=== PATIENT | male | born 1995 | race Hispanic/Latino ===

== ENCOUNTER 2016-12-20 12:47 | Emergency (ER) | payer OTHER ==
[2016-12-20 12:52] VITALS: BP 137/80; PULSE 118; RESP 20; TEMP 100; O2SAT 99
[2016-12-20] MEDS ORDERED: Lidocaine 1% w Epi 1:100,000 Inj ONE (13:02)
--- NOTE | 2016-12-20 13:19 | ED PDOC ---
HPI: Head Injury Time Seen by Provider: 12/20/16 12:50 Chief Complaint (Nursing): Abnormal Skin Integrity Chief Complaint (Provider): Head and right hand injury History Per: Patient History/Exam Limitations: no limitations Injury Occurred (Timing): Just Before Arrival (Prior to arrival) Onset/Duration Of Symptoms: Mins Patient States: Struck With Object Loss Of Consciousness: No Additional Complaint(s): Aurelio Martinez is a 21 year old male, with a past medical history of seizures, who presents to the emergency department via EMS due to a head injury associated with a superficial abrasion to the right hand onset prior to arrival. EMS applied dressing and pressure to the wounds prior to arriving to the ER. Patient reports he was sawing wood incorrectly when it kicked back and hit him in the head. He denies any loss of consciousness, dizziness, nausea, and vomit. He states his T-dip is not up to date. No further medical complaints. PMD: None provided. Past Medical History Reviewed: Historical Data, Nursing Documentation, Vital Signs Vital Signs: Last Vital Signs Temp 100 F H 12/20/16 12:49 Pulse 118 H 12/20/16 12:49 Resp 20 12/20/16 12:49 BP 137/80 12/20/16 12:49 Pulse Ox 99 12/20/16 12:49 - Medical History PMH: Seizures - Family History Family History: States: Unknown Family Hx - Social History Current smoker - smoking cessation education provided: No Alcohol: Social Drugs: Denies - Immunization History Hx Tetanus Toxoid Vaccination: No Hx Influenza Vaccination: No Hx Pneumococcal Vaccination: No - Home Medications Home Medications: Ambulatory Orders Medication Instructions Recorded Ibuprofen [Motrin] 600 mg PO Q6 #20 tab 12/20/16 - Allergies Allergies/Adverse Reactions: Allergies Allergy/AdvReac Type Severity Reaction Status Date / Time No Known Allergies Allergy Verified 12/20/16 12:49 Review of Systems ROS Statement: Except As Marked, All Systems Reviewed And Found Negative Gastrointestinal: Negative for: Nausea, Vomiting Musculoskeletal: Positive for: Arm Pain (right hand abrasion) Skin: Positive for: Other (Right forehead laceration) Neurological: Negative for: Dizziness, Other (loss of consciousness) Physical Exam - Reviewed Nursing Documentation Reviewed: Yes Vital Signs Reviewed: Yes - Physical Exam Appears: Positive for: Well, Non-toxic, No Acute Distress Head Exam: Positive for: NORMAL INSPECTION, NORMOCEPHALIC. Negative for: ATRAUMATIC (4cm vertical laceration deep on right forehead, no active bleeding) Skin: Positive for: Normal Color, Warm, Dry Eye Exam: Positive for: Normal appearance Neck: Positive for: Normal, Painless ROM, Supple Respiratory: Positive for: Normal Breath Sounds. Negative for: Respiratory Distress Extremity: Positive for: Other (Right hand superficial abrasion to right 1st and 2nd digits) Neurologic/Psych: Positive for: Alert, Oriented. Negative for: Motor/Sensory Deficits - ECG O2 Sat by Pulse Oximetry: 99 (RA) Pulse Ox Interpretation: Normal Medical Decision Making Medical Decision Making: Initial Impression: Right forehead vertical laceration, Right hand superficial abrasion Initial Plan: --Adacel 0.5 ml IM --Laceration repaired by BENSON, see procedure note Wound care discussed Scribe Attestation: Documented by Theodore Bolden, acting as a scribe for Yina LINDSEY. Provider Scribe Attestation: All medical record entries made by the Scribe were at my direction and personally dictated by me. I have reviewed the chart and agree that the record accurately reflects my personal performance of the history, physical exam, medical decision making, and the department course for this patient. I have also personally directed, reviewed, and agree with the discharge instructions and disposition. Disposition - Clinical Impression Clinical Impression: Laceration, Head injury - Patient ED Disposition Is Patient to be Admitted: No - Disposition Disposition: Routine/Home Disposition Time: 14:03 Condition: STABLE Prescriptions: Ibuprofen [Motrin] 600 mg PO Q6 #20 tab Instructions: Care For Your Absorbable Stitches (ED), Head Injury (ED) Forms: [employer] (Upper Sorbian) - POA Present On Arrival: Falls Or Trauma Laceration - Laceration Repair laceration Wound Length (In cm): 4 Description Of Wound: Linear Wound Cleansed With: Sterile Saline Anesthesia: Lidocaine 1%, With Epi Wound Examination: Irrigated With Saline, No FB With Wound Exploration Wound Closure: Suture Suture Technique And Material Used: Running (SQ), Chromic (6-0) Wound Complexity: Complex
== END 2016-12-20 14:11 | disposition home or self-care (01) ==
LOC: H.ER 12:47
DX: S60.511A Abrasion of right hand, initial encounter (principal); S01.81XA Laceration without foreign body of other part of head, initial encounter; W22.8XXA Striking against or struck by other objects, initial encounter